=== PATIENT | female | born 1945 ===

== ENCOUNTER 2017-10-15 10:00 | Outpatient (CLI) | payer MEDICARE ==
--- NOTE | 2017-10-15 11:12 | XRay Report ---
XRAY RIGHT KNEE FOUR VIEWS: 10/15/17 10:00:00 CLINICAL: Right knee pain. FINDINGS: Moderate diffuse osteopenia. Status post ORIF of a femur fracture with a large medial femoral plate and screws. Normal appearance of the hardware. No fracture lines. No fracture or dislocation. Medial joint space narrowing with no osteophytes. Patellofemoral joint space narrowing with no osteophytes. No joint effusion. Normal soft tissues. IMPRESSION: Osteopenia and status post ORIF of a femur fracture. Minimal arthritis.
== END 2017-10-15 10:01 | disposition home or self-care (01) ==
LOC: SPVIMAG 10:00
PROVIDERS: ATTEND Orthopaedic Surgery Sports Medicine
DX: M17.11 Unilateral primary osteoarthritis, right knee (principal); M85.861 Other specified disorders of bone density and structure, right lower leg; Z98.890 Other specified postprocedural states